=== PATIENT | female | born 2000 | race Caucasian/White ===

== ENCOUNTER 2024-08-24 03:00 | Day surgery (SDC) | payer OTHER, SELFPAY ==
[2024-08-15 14:04] VITALS: BMI 20.6
--- OUTSIDE RECORDS SUMMARY | 2024-08-24 03:04 | XMS_ITS | Encounter Summary ---
Author Organization [facility] Address [facility] [place] [address] Care Team Providers Care Supervisor Core Drilling Name Role Phone Alvin Langford MD Primary Care Prov ider Reason for Referral * Imaging (Routine) - Closed Specialty Diagnoses / Procedures Referred By Contac t Referred To Contact RADIOLOGY Diagnoses Generalized abdominal pain Procedures NM HEPATOBILIARY SCAN W/GB EJECTION FRACTION NM HEPATOBILIARY WO GB EJECTION FRACTION Bennie Garcia MD [address] [place] [address] Phone: tel: fax: Referral ID Status Reason Start Date Expiration Date Visits Re quested Visits Authorized [id number] Closed 08/19/2024 10/03/2024 1 1 Reason for Visit * Imaging (Routine) - Closed Specialty Diagnoses / Procedures Referred By Contac t Referred To Contact RADIOLOGY Diagnoses Generalized abdominal pain Procedures NM HEPATOBILIARY SCAN W/GB EJECTION FRACTION NM HEPATOBILIARY WO GB EJECTION FRACTION Bennie Garcia MD [address] [place] [address] Phone: tel: fax: Referral ID Status Reason Start Date Expiration Date Visits Re quested Visits Authorized [id number] Closed 08/19/2024 10/03/2024 1 1 Encounter Details Date Type Department Care Team (Latest Contact Info) Description 08/22/2024 7:00 AM CDT - 08/22/2024 11:59 PM CDT Hospital Encounter [facility] Nuclear [place] [address] Bennie Garcia MD [address] [place] [address] Arrived Discharge Disposition: Home or Self Care (Routine Discharge) Social History Tobacco Use Types Packs/Day Years Used Date Smoking Tobacco: Never Smokeless Tobacco: Never Alcohol Use Standard Drinks/Week Comments Yes 0 (1 standard drink = 0.6 oz pur e alcohol) special occaions PHQ-2 Answer Date Recorded Patient Health Questionnaire-2 Score 0 12/08/2023 Comments No Sex and Gender Information Value Date Recorded Sex Assigned at Not on file Legal Sex Female 2:34 PM CDT Gender Identity Not on file Sexual Orientation Not on file documented as of this encounter Medications at Time of Discharge omeprazole (PRILOSEC) 40 MG capsuleIndications :Gastroesophageal reflux disease without esophagitis Take 1 capsule (40 mg total) by mouth daily. 30 capsule 1 12/08/2023 documented as of this encounter Plan of Treatment Not on file documented as of this encounter Procedures Procedure Name Priority Date/Time Associated Diagnosis Comments NM HEPATOBILIARY SCAN W/GB EJECTION FRACTION Routine 08/22/2024 8:46 AM CDT Generalized abdominal pain documented in this encounter Results * NM HEPATOBILIARY SCAN W/GB EJECTION FRACTION (08/22/2024 8:46 AM CDT) Anatomical Region Laterality Modality Abdomen Nuclear Medicine 08/22/2024 9:38 AM CDT Impressions 08/22/2024 9:41 AM CDT IMPRESSION: 1. Normal contractile response of the gallbladder to sincalide infusion. 2. Normal biliary imaging study. Ordered By: BENNIE GARCIA Interpreted By: Tri Herrera MD, 08/22/2024 9:38 AM Narrative 08/22/2024 9:41 AM CDT [facility] [address] EXAMINATION: HEPATOBILIARY SCINTIGRAPHY (WITH GALLBLADDER EJECTION FRACTION) DATE OF STUDY: 08/22/2024 7:46 AM RADIOPHARMACEUTICAL: 4.9 mCi Tc-99m mebrofenin i.v. and 1.1 mcg sincalide i.v. HISTORY: Generalized abdominal pain, typically pain occurs after eating fatty foods. Prior nuclear medicine studies used for comparison: none Other radiographic comparisons: Abdominal ultrasound 07/27/2024 FINDINGS: Following intravenous administration of tracer, sequential abdominal images were obtained. There is prompt, uniform accumulation of the tracer by the liver. There is normal filling of the intrahepatic ducts, common bile duct and gallbladder and normal excretion of the tracer into the duodenum. In order to evaluate the contractile response of the gallbladder in response to cholecystokinin, sincalide (0.02 mcg /kg) was administered by slow intravenous infusion over 30 minutes, starting approximately 60 minutes after the administration of the radiopharmaceutical. Sequential imaging was continued for 30 minutes after the start of the sincalide infusion. These images demonstrate good contraction of the gallbladder. The calculated gallbladder ejection fraction is 97% (normal greater than 35%). Procedure Note Tri Herrera MD - 08/22/[address] [address] EXAMINATION: HEPATOBILIARY SCINTIGRAPHY (WITH GALLBLADDER EJECTIONFRACTION) DATE OF STUDY: 08/22/2024 7:46 AM RADIOPHARMACEUTICAL: 4.9 mCi Tc-99m mebrofenin i.v. and 1.1 mcg sincalidei.v. HISTORY: Generalized abdominal pain, typically pain occurs after eatingfatty foods. Prior nuclear medicine studies used for comparison: none Other radiographic comparisons: Abdominal ultrasound 07/27/2024 FINDINGS: Following intravenous administration of tracer, sequentialabdominal images were obtained. There is prompt, uniform accumulation ofthe tracer by the liver. There is normal filling of the intrahepaticducts, common bile duct and gallbladder and normal excretion of the tracerinto the duodenum. In order to evaluate the contractile response of the gallbladder inresponse to cholecystokinin, sincalide (0.02 mcg /kg) was administered byslow intravenous infusion over 30 minutes, starting approximately 60minutes after the administration of the radiopharmaceutical. Sequentialimaging was continued for 30 minutes after the start of the sincalideinfusion. These images demonstrate good contraction of the gallbladder.The calculated gallbladder ejection fraction is 97% (normal greater than35%). IMPRESSION: 1. Normal contractile response of the gallbladder to sincalideinfusion. 2. Normal biliary imaging study. Ordered By: BENNIE GARCIA Interpreted By: Tri Herrera MD, 08/22/2024 9:38 AM Bennie Garcia MD NUC MED Final Result documented in this encounter Visit Diagnoses Diagnosis Generalized abdominal pain Abdominal pain, generalized documented in this encounter Administered Medications Inactive Administered Medications - up to 3 most recent administrations Medication Order MAR Action Action Date Dose Rate Site sincalide (KINEVAC) 1.09 mcg in sodium chloride (PF) 0.9 % 20 mL IV syringe 1.09 mcg (rounded from 1.088 mcg = 0.02 mcg/kg 54.4 kg Order-specific weight), Intravenous, Once, 1 dose, On Thu08/22/24 at 0845 Given 08/22/2024 8:46 AM CDT 1.09 mcg technetium Tc 99m mebrofenin (CHOLETEC) radio-isotope injection 4.9 millicurie 4.9 millicurie (rounded from 4.85 millicurie), Intravenous, Once, 1 dose, On Thu08/22/24 at 0815, Test should be performed while patient is fasting; avoid interference with opioids by delaying the study for 4 hours after the last dose. RADIOPHARMACEUTICAL: Use appropriate precautions for handling & disposal. Follow appropriate safety measures to minimize radiation exposure during administration; use waterproof gloves & effective shielding, including syringe mcdonald. Given 08/22/2024 7:55 AM CDT 4.9 millicuries documented in this encounter Additional Health Concerns Assessment Noted Time PHQ-9 Depression Total Score: 2 12/08/19 24 8:10 AM CDT documented as of this encounter Care Teams Supervisor Core Drilling Relationship Specialty Start Date End Date Alvin Langford MD [address] [address] PCP - General FAMILY PRACTICE 12/08/23 documented as of this encounter
--- OUTSIDE RECORDS SUMMARY | 2024-08-24 03:04 | XMS_ITS | Clinical Summary ---
Author Organization [facility] Address [facility] [place] [address] Care Team Providers Care Consulting It Architect Name Role Phone Alvin Langford MD Primary Care Prov ider Allergies No known active allergies Medications omeprazole (PRILOSEC) 40 MG capsuleIndicatio ns:Gastroesophag eal reflux disease without esophagitis Take 1 capsule (40 mg total) by mouth daily. 30 capsule 1 12/08/2023 Active Encounters Date Type Department Care Team Description 08/22/2024 7:00 AM CDT - 08/22/2024 11:59 PM T Hospital Encounter [facility] [place] [address] Bennie Garcia MD Arrived Discharge Disposition: Home or Self Care (Routine Discharge) 08/22/2024 Travel 07/27/2024 8:00 AM CDT - 07/27/2024 11:59 PM [facility] Hospital Encounter [facility] [place] [address] Bennie Garcia MD Discharge Disposition: Home or Self Care (Routine Discharge) 07/27/2024 Travel from Last 3 Months Immunizations Immunization Administration Dates Next Due Afluria (IIV3, Trivalent, 0. 5 ML Prefilled Syringe) 12/07/2023 Dtap (Acel-Immune) 12/21/2003, 2,06/16/2000,04/14,02/18/2000 HPV 12/28/2013,08/24/2013,06/22/2013 Hepatitis A (Generic) 09/09/2011,08/30/2010 Hepatitis B Pediatric 09/23/2000,03/17/2000,06/1999 Hib (Generic) 03/18/2001, 1,04/14/2000,02/17 Influenza Adult (Generic) 01/07/2021,02/2019,11/27/2018,11/05,01/21/2012,12/22/2005,01/08/2005 ,12/21/2003,12/19/2002,02/24/2002 MMR (MMRII) 12/21/2003,03/18/2001 Meningococcal (Generic) 12/21/2015,09/09/2011 Pneumococcal (Prevnar 13) 03/18/2001,09/2000,04/14/2000,02/17 Polio IPV (Ipol) 12/21/2003, 2,04/14/2000,02/17 Tdap (Generic) 06/17/2011 Varicella (Varivax) 08/30/2010,12/15/2000 Family History Medical History Relation Comments Heart Disease Father lung problems Maternal Grandfather Cancer Maternal Grandmother Hypertension Mother Cancer Paternal Aunt Kidney Disease Paternal Aunt Stroke Paternal Aunt Relation Status Comments Father Maternal Grandfather Maternal Grandmother Mother Paternal Aunt Social History Tobacco Use Types Packs/Day Years Used Date Smoking Tobacco: Never Smokeless Tobacco: Never Tobacco Cessation:Counseling Given: Not Answered Alcohol Use Standard Drinks/Week Comments Yes 0 (1 standard drink = 0.6 oz pur e alcohol) special occaions PHQ-2 Answer Date Recorded Patient Health Questionnaire-2 Score 0 12/08/2023 Comments No Sex and Gender Information Value Date Recorded Sex Assigned at Not on file Legal Sex Female 2:34 PM CDT Gender Identity Not on file Sexual Orientation Not on file Last Filed Vital Signs Vital Sign Reading Time Taken Comments Blood Pressure 136/82 12/08/2023 8:10 AM CDT Pulse 94 12/08/2023 8:10 AM CDT Temperature 36.7 C (98.1 F) 12/08/2023 8:10 AM CDT Respiratory Rate 18 12/08/2023 8:10 AM CDT Oxygen Saturation 99% 12/08/2023 8:10 AM CDT Inhaled Oxygen Concentration - - Weight 56.9 kg (125 lb 6.4 oz) 12/08/2023 8:10 A M CDT Height 162.6 cm (5' 4) 12/08/2023 8:10 AM CDT Body Mass Index 21.52 12/08/2023 8:10 AM CDT Plan of Treatment Health Maintenance Due Date Last Done Comments DTaP, Tdap and Td Vaccines (7 - Td or Tdap) 06/16/2021 06/17/2011, 12/21/2003, 06/15/2001, Additional history exists Chlamydia Screening Females ages 16-24 07/06/2021 07/06/2020 Cervical Cancer Screening Pap Smear (Age 21 to 29) Every 3 Years 07/07/2023 07/06/2020 Cervical Cancer Screening 07/07/2023 COVID-19 Vaccine ( season) 2023 09/30/2020 PHQ-2 ([facility]) 02/10/2024 12/08/2023 Annual Physical 12/07/2024 12/08/2023 Hepatitis B Vaccines Completed 09/23/2000, 03/17/2000, 01/14/2000 Pneumococcal Vaccine: Pediatrics (0 to 5 Years) and At-Risk Patients (6 to 49 Years) Completed 03/18/2001, 06/16/2000, 04/14/2000, Additional history exists HPV Vaccines Completed 12/28/2013, 08/09, 06/22/2013 Meningococcal Vaccine Aged Out 12/21/2015, 012 No longer eligible based on patient's age to complete this topic Hepatitis C Completed 10/06/2022 Meningococcal B Vaccine Aged Out No l onger eligible based on patient's age to complete this topic RSV Immunizations Under 20 Months Aged Out No longer eligible based on patient's age to complete this topic Procedures Procedure Name Priority Date/Time Associated Diagnosis Comments NM HEPATOBILIARY SCAN W/GB EJECTION FRACTION Routine 08/22/2024 8:46 AM CDT Generalized abdominal pain US ABD COMPLETE Routine 07/27/2024 9:08 AM CDT Generalized abdominal pain from Last 3 Months Results * NM HEPATOBILIARY SCAN W/GB EJECTION FRACTION (08/22/2024 8:46 AM CDT) Anatomical Region Laterality Modality Abdomen Nuclear Medicine 08/22/2024 9:38 AM CDT Impressions 08/22/2024 9:41 AM CDT IMPRESSION: 1. Normal contractile response of the gallbladder to sincalide infusion. 2. Normal biliary imaging study. Ordered By: BENNIE GARCIA Interpreted By: Tri Herrera MD, 08/22/2024 9:38 AM Narrative 08/22/2024 9:41 AM CDT [address] [address] EXAMINATION: HEPATOBILIARY SCINTIGRAPHY (WITH GALLBLADDER EJECTION FRACTION) [...] Procedure Note Tri Herrera MD - 08/22/2024 [address] [place], [place] [address] EXAMINATION: HEPATOBILIARY SCINTIGRAPHY (WITH GALLBLADDER EJECTIONFRACTION) DATE [...] MD, 08/22/2024 9:38 AM Bennie Garcia MD [facility] Final Result * US ABD COMPLETE (07/27/2024 9:08 AM CDT) Anatomical Region Laterality Modality Abdomen Ultrasound 07/27/2024 9:34 AM CDT Impressions 07/27/2024 9:55 AM CDT IMPRESSION: No acute abnormality. Ordered By: BENNIE GARCIA Interpreted By: David Miller, 07/27/2024 9:34 AM Narrative 07/27/2024 9:55 AM CDT [address] [address] IMAGING STUDIES: US ABD COMPLETE DATE: 07/27/2024 8:20 AM HISTORY: GENERALIZED ABDOMINAL PAIN 23-year-old female. Generalized abdominal pain for 7 months. Associated diarrhea, nausea, and occasional vomiting. COMPARISON: None at this institution. DISCUSSION: Liver echogenicity within normal limits. Liver length of 16.1 cm. No focal hepatic mass or intrahepatic biliary ductal dilatation. Color doppler imaging of the hepatic veins, inferior vena cava and portal vein and pulse Doppler imaging of the portal vein. Appropriate flow direction in the portal vein and normal color Doppler imaging of the interrogated venous system. Adequately distended gallbladder. No gallstones or sludge. Gallbladder wall is normal at 1 mm thickness. No sonographic Cruz's sign. Common bile duct is normal at 2.7-3.5 mm diameter Pancreas is within normal limits. Proximal abdominal aorta 1.7 x 1.8 cm, mid abdominal aorta 1.4 x 1.3 cm, and distal abdominal aorta 1.3 x 1.4 cm. Proximal common iliac arteries are 0.9 cm diameter. Normal color Doppler and pulse Doppler imaging of the mid abdominal aorta. Right kidney 9.9 x 3.9 x 4.3 cm. Left kidney 9.6 x 3.7 x 4.1 cm. No hydronephrosis. No appreciable renal lesion or calcification. Normal color Doppler signal to both kidneys. Spleen 10.8 x 4.1 x 4.7 cm. Normal color Doppler signal within the spleen. Procedure Note David Miller MD - 07/27/[address] [address] IMAGING STUDIES: US ABD COMPLETEDATE: 07/27/2024 8:20 AM HISTORY: GENERALIZED ABDOMINAL PAIN 23-year-old female. Generalizedabdominal pain for 7 months. Associated diarrhea, nausea, and occasionalvomiting. COMPARISON: None at this institution. DISCUSSION: Liver echogenicity within normal limits. Liver length of 16.1 cm. No focalhepatic mass or intrahepatic biliary ductal dilatation. Color doppler imaging of the hepatic veins, inferior vena cava and portalvein and pulse Doppler imaging of the portal vein. Appropriate flowdirection in the portal vein and normal color Doppler imaging of theinterrogated venous system. Adequately distended gallbladder. No gallstones or sludge. Gallbladderwall is normal at 1 mm thickness. No sonographic Cruz's sign. Common bile duct is normal at 2.7-3.5 mm diameter Pancreas is within normal limits. Proximal abdominal aorta 1.7 x 1.8 cm, mid abdominal aorta 1.4 x 1.3 cm,and distal abdominal aorta 1.3 x 1.4 cm. Proximal common iliac arteriesare 0.9 cm diameter. Normal color Doppler and pulse Doppler imaging of themid abdominal aorta. Right kidney 9.9 x 3.9 x 4.3 cm. Left kidney 9.6 x 3.7 x 4.1 cm. Nohydronephrosis. No appreciable renal lesion or calcification. Normal colorDoppler signal to both kidneys. Spleen 10.8 x 4.1 x 4.7 cm. Normal color Doppler signal within thespleen. IMPRESSION: No acute abnormality. Ordered By: BENNIE GARCIA Interpreted By: David Miller, 07/27/2024 9:34 AM Bennie Garcia MD ULTRASOUND Final Result from Last 3 Months Insurance Care Teams Consulting It Architect Relationship Specialty Start Date End Date Alvin Langford MD [address] [place] [address] PCP - General FAMILY PRACTICE 12/08/23
--- OUTSIDE RECORDS SUMMARY | 2024-08-24 03:04 | XMS_ITS | Continuity of Care Document ---
Author Organization [facility] Address [address] [place] [address] [place] [address] Phone Care Team Providers Care Physical Therapy Asst Name Role Phone Oswald Cox MD Unavailable Unavailable Allergies, Adverse Reactions, Alerts Substance Reaction Status Criticality No Known Allergies Active No Inform ation Medications Medication Instructions Dosage Effective Dates (start - stop) Status Comments Klonopin 0.5 mg tablet take 1 tablet by oral route every 6 hours PRN as needed - Active PRN for anxi ety, avoid driving or operate machines Procedures Procedure Date OFFICE/OUTPATIENT VISIT, EST OFFICE/OUTPATIENT VISIT, EST PREV VISIT, NEW, AGE 18-39 OFFICE/OUTPATIENT VISIT, NEW Advance Directives Directive Yes / No Effective Date File Name No Information Encounters Encounter Description Practice Location Reason(s) For Visit Diagnoses Date Provider Providers Copied on Encounter OFFICE/OUTPA TIENT VISIT, [facility], [address], [id number], tel:[phone] [facility] abd pain1 (chief complaint) sinus1 (chief complaint) Generalized abdominal painAllergic rhinitis due to pollen 5 Kenny Akers. [address], [place], [place], [id number] , [place]. tel:[phone] OFFICE/OUTPA TIENT VISIT, [facility], [address], [place], [place], [id number], [place] tel:[phone] [facility] sinus1 (chief complaint) anxiety1 (chief complaint) stomach pain1 (chief complaint) Chronic sinusitisGeneralize d Anxiety DisorderGeneralized abdominal pain Apr- 5 Kenny Akers. [address], [place], [place], [id number] , [place]. tel:[phone] PREV VISIT, NEW, AGE 18-39 [facility], [address] [place], [place], [id number], [place] tel:[phone] [facility] Medicine physical (chief complaint) Encounter for general adult medical exam w abnormal findingsGeneralized Anxiety DisorderChronic sinusitis Apr- 5 Kenny Akers. [address], [place], [place], [id number] , [place]. tel:[phone] Family History Family Member Type Diagnosis Age At Onset Mother Problem schizophrenia, of MVA Father Problem afib Payers Payer name Insurance type Covered green party ID Authorgera poe(s) [facility] [id number] Social History Type Description Quantity Date Captured Comments Alcohol Use Details beer 4 beers monthly Caffeine Use Details tea 2 cups per day Tobacco Use Status Current non-smoker Smoking Status Never smoker Sex Female Vital Signs Date / Time: Height Weight BMI Pulse Rate Blood Pressure Temperature Respiratory Rate Body Surface Area Head Circumference BMI percentile Pulse Ox Inhaled Ox 4:26 PM 64.00 in 124.40 lbs 21.3 5 kg/m eter (2) 68 /min 120/68 mm[Hg] 98.5 F 16 /min Chief Complaint And Reason For Visit From encounter dated '07/06/2024 16:18'. abd pain1 (chief complaint). Description: Pt states that she has intermittent midepigastric pain with nausea and some non bloody diarrhea x 6 months. She states that abd pain and diarrhea usually is worse any type of food. Pt also feels sweaty after food. Pt also notices some benign palpitation along with stomach upset. Pt denies any GERD Pt state that meat/fatty meal causes more stomach issue. Pt states that omeprazole did not help sinus1 (chief complaint). Description: Pt has chronic sinus allergy. Pt has allergy to dust mite and some trees .Pt doing ok with nasal inhaler . Plan Of Treatment Date Type Action Status Referral Ordered: Ke Eason -[facility] : Internal Medicine : Gastroenterology (related to Generalized abdominal pain) ordered Referral Ordered: US EXAM, ABDOM, COMPLETE ordered Referral Referred To: Ke Eason [address] [place], [place], [id number] Ordered: Referrals: [facility]opathic [facility] Osteopathic Physicians : Internal Medicine : Gastroenterology. Ke Eason. Evaluate and treat ordered Referral Ordered: NUC MED HIDA (HEPATOBILIARY) SCAN ordered Referral Ordered: CT MAXILLOFACIAL W/O DYE (SINUSES) SF ordered History Of Present Illness Encounter Date Complaint History Of Prese nt Illness sinus1 Pt has chronic s inus allergy. Pt has allergy to dust mite and some trees .Pt doing ok with nasal inhaler . abd pain1 Pt states that s he has intermittent midepigastric pain with nausea and some non bloody diarrhea x 6 months. She states that abd pain and diarrhea usually is worse any type of food. Pt also feels sweaty after food. Pt also notices some benign palpitation along with stomach upset. Pt denies any GERD Pt state that meat/fatty meal causes more stomach issue. Pt states that omeprazole did not help sinus1 Pt has been noti cing mucous around throat area for 3 years Pt denies any sinus congestion or GERD Pt sometimes has to cough it up which is yellow and clear. Pt denies any sore throat or any noticeable postnasal drainage Pt saw ENT one year ago and she was started on flonase and omeprazole and none helped. Pt denies any sneezing or any allergy symptoms Pt notices hoarseness around throat area and she had to quit singing. Pt started flonase and astelin which has been helping Pt has not done sinus ct yet stomach pain1 pt states that s he had small amount of alcohol recently x two times and she felt some midepigastric pain with nausea and some non bloody diarrhea afterward. Pt denies any GI symptoms other than drinking alcohol. anxiety1 Pt has mild anxi ety .Pt denies any depression or any suicidal or homicidal thought .Pt denies any crying spells .Pt only took klonopin one time recently which did help. 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 Pt denies any sore throat or any noticeable postnasal drainage Pt saw ENT one year ago and she was started on flonase and omeprazole and none helped. Pt denies any sneezing or any allergy symptoms Pt notices hoarseness around throat area and she had to quit singing Pt has mild anxiety sometimes. Pt denies any depression or any suicidal or homicidal thought Pt denies any crying spells. Instructions Date Instruction Additional Infor ha No Information Assessments Type Assessment Date assessment Generalized abdominal pain assessment Allergic rhinitis due to pollen Mental Status Date Cognitive Assessment Orientation - [place] ed to time, place, person, situation.
[2024-08-24 12:52] VITALS: BP 137/86; PULSE 108; RESP 20; TEMP 37.4; O2SAT 100; BMI 19.7
[2024-08-24 12:57] LABS: BEDSIDEPREGUCG Negative (Negative)
[2024-08-24] MEDS: LACTATED RINGERS 1,000 ML 150 ML IV CONT (13:00)
[2024-08-24] MEDS: SIMETHICONE ORAL SUSPENSION 20 MG/0.3 ML 30 ML BOTTLE 1.8 ML PO (13:01)
--- NOTE | 2024-08-24 13:10 | WPDANESEPPF ---
Anes - Initial Pre Proc Eval Procedure: Operation Date: 08/24/24 14:00 Proposed Procedures p EGD & Diagnostic Colonoscopy - Mukund Brooke MD Date/Time: 08/24/24 13:10 Surgeon: Mukund Brooke MD Pre Op Diagnosis: Nausea, abdominal pain, diarrhea, heartburn Patient Data Age: 23 Gender: F Height: 1.63 m Weight: 52.1 kg Last Vital Signs Temp 99.4 F 08/24/24 12:52 Pulse 108 H 08/24/24 12:52 Resp 20 08/24/24 12:52 BP 137/86 08/24/24 12:52 Pulse Ox 100 08/24/24 12:52 O2 Del Method Room Air 08/24/24 12:52 Allergies Allergy/AdvReac Type Severity Reaction Status Date / Time No Known Allergies Allergy Verified 08/24/24 12:51 Home Medications ?Medication ?Instructions ?Recorded ?Confirmed ?Type azelastine 205.5 mcg (0.15 %) 2 spray intranasal DAILY 08/05/24 08/24/24 History nasal spray clonazepam 0.5 mg tablet (Klonopin) 0.5 mg PO QHS PRN anxiety 08/05/24 08/24/24 History dicyclomine 10 mg capsule 10 mg PO QID PRN abdominal pain 08/08/24 08/24/24 Rx #120 caps omeprazole 40 mg capsule,delayed 40 mg PO DAILY 1 month #30 caps 08/08/24 08/24/24 Rx release Laboratory Tests 08/24/24 12:52 POC Urine HCG, Qual Negative (Negative) Patient hx anesthesia problems: none Family hx anesthesia problems: none Results Review: All pre-operative results and documents have been reviewed as part of the pre-operative evaluation. [facility] Past Medical History Medical History (Updated 08/08/24 @ 15:47 by Ness Dobbs APN-C) GERD (gastroesophageal reflux disease) Change in bowel habits Family history of Lentz syndrome Nausea Diarrhea Allergies Abdominal pain Left wrist fracture Family History Family History Father Afib Mother Schizophrenia Social History Social History Smoking status: Never smoker Alcohol intake: current Drinks per week: 1 Substance use: never Substance use type: does not use Living arrangements: alone Spiritual care concerns: No Anes - Eval Final PreProcedure Day of Procedure 08/24/24 13:10 Patient weight: normal Heart: regular rate and rhythm Lungs: clear to auscultation Airway: Mallampati scale class II Neurological: alert and oriented Last oral intake: >/= 8 hours ASA classification: II Emergent: no Anesthetic plan: proceed Anesthesia type and monitoring: general GIVS and standard monitoring Results Review: All pre-operative results and documents have been reviewed as part of the pre-operative evaluation. Informed Consent: The patient's anesthetic plan and its attendant risks and benefits were discussed with the patient/family/POA. Questions were solicited and answers provided to the satisfaction of the patient/family/POA.
--- NOTE | 2024-08-24 13:29 | PM.IMHP ---
H&P: HPI History of Present Illness Date/Time: 08/24/24 13:29 Chief Complaint: GERD- family history of Lentz syndrome -diarrhea Narrative: The patient has been suffering from diarrhea for several months as well as persistent heartburn. She is referred today for EGD and colonoscopy. Of note, her father and uncle have Lentz syndrome. Review of Systems Review of Systems: All systems reviewed & are unremarkable except as noted in HPI and below PMFSH Past Medical History Medical History (Updated 08/08/24 @ 15:47 by DAVON Valdivia) GERD (gastroesophageal reflux disease) Change in bowel habits Family history of Lentz syndrome Nausea Diarrhea Allergies Abdominal pain Left wrist fracture Family History Family History Father Afib Mother Schizophrenia Social History Social History Smoking status: Never smoker Alcohol intake: current Drinks per week: 1 Substance use: never Substance use type: does not use Living arrangements: alone Spiritual care concerns: No Meds Home Medications and Allergies Home Medications ?Medication ?Instructions ?Recorded ?Confirmed ?Type azelastine 205.5 mcg (0.15 %) 2 spray intranasal DAILY 08/05/24 08/24/24 History nasal spray clonazepam 0.5 mg tablet (Klonopin) 0.5 mg PO QHS PRN anxiety 08/05/24 08/24/24 History dicyclomine 10 mg capsule 10 mg PO QID PRN abdominal pain 08/08/24 08/24/24 Rx #120 caps omeprazole 40 mg capsule,delayed 40 mg PO DAILY 1 month #30 caps 08/08/24 08/24/24 Rx release Allergies Allergy/AdvReac Type Severity Reaction Status Date / Time No Known Allergies Allergy Verified 08/24/24 12:51 Vital Signs Vital Signs - 24 hr 08/24/24 12:52 Temperature 99.4 F Pulse Rate 108 H Respiratory Rate 20 Blood Pressure 137/86 Pulse Oximetry 100 Oxygen Delivery Room Air Exam Const: General: cooperative and healthy appearing Resp: Effort & Inspection: normal respiratory effort and able to speak in complete sentences Auscultation: clear to auscultation bilaterally Cardio: Rate: regular rate Rhythm: regular rhythm GI: Inspection: normal to inspection GI Palp: No No hepatosplenomegaly present Auscultation: normal bowel sounds Rectal Exam: deferred Skin: General skin exam: normal color Psych: Appearance: grossly normal Mental Status: mental status grossly normal Assessment and Plan Assessment and plan (1) Diarrhea: Code(s): R19.7 - Diarrhea, unspecified Status: Acute Assessment and Plan: The patient is deemed a good candidate for the procedures. Consent signed. Will proceed. (2) Family history of Lentz syndrome: Code(s): Z80.0 - Family history of malignant neoplasm of digestive organs Status: Acute (3) GERD (gastroesophageal reflux disease): Code(s): K21.9 - Gastro-esophageal reflux disease without esophagitis Status: Acute
--- NOTE | 2024-08-24 13:47 | SUR.OPER ---
egd ended at 1343, colon began at 1348
--- NOTE | 2024-08-24 13:50 | S_PTH ---
PATIENT: Deonna Lanza LOC: [facility] U#:[id number] AGE/SX: 23/F ROOM: RE08/24/[address]: Mukund Brooke MD : 2000 BED: DIS: 08/24/2024 SPEC #: [id number] RECD: 08/25/24 07:26 STATUS: CANDICE REYsabel #: [id number] MARY BETH: 08/24/24 13:[address]: Mukund Brooke DEPT: [facility] Surgical RECD BY: Nighat Howard ENTERED: 08/25/24 07:28 SP TYPE: Surgical OTHR DR: Oswald Cox MD Tissues: A - Gastric Biopsy B - Gastric Biopsy C - Colon Biopsy D - Colon Biopsy E - Small Bowel Bx Procedures: Hematoxylin and Eosin Stain Gross and Microscopic Level 4
[2024-08-24 14:06] VITALS: BP 119/60; PULSE 96; RESP 15; O2SAT 100
[2024-08-24 14:16] VITALS: BP 114/68; PULSE 76; RESP 20; O2SAT 100
[2024-08-24 14:26] VITALS: BP 109/63; PULSE 69; RESP 19; O2SAT 99
== END 2024-08-24 14:40 | disposition home or self-care (01) ==
PROVIDERS: Anesthesiology; PCP Emergency Medicine; Referring Provider Nurse Practitioner Family; Visit Provider Internal Medicine Gastroenterology
PROC: 0DJ08ZZ Inspection of Upper Intestinal Tract, Via Natural or Artificial Opening Endoscopic (ICD-10-PCS; CPT 45378; principal; 2024-08-24 14:00)
DX: R19.7 Diarrhea, unspecified (principal); K21.9 Gastro-esophageal reflux disease without esophagitis; Z80.0 Family history of malignant neoplasm of digestive organs
CPT/HCPCS: 45380; 43239; 88305; J2704; J7120